=== PATIENT | male | born 1970 | race Caucasian/White ===

== ENCOUNTER 2019-04-02 09:26 | Emergency (ER) | payer MEDICAID ==
[~2019-04-02] VITALS: Ht 177.8 cm; Wt 72.6 kg
[2019-04-02 09:37] VITALS: BP 150/113
--- NOTE | 2019-04-02 09:48 | NUR ---
PATIENT AMBULATED TO BED 2.
--- NOTE | 2019-04-02 09:55 | NUR ---
pt arrived to ed c/o high blood sugar x today. bs current is 459. pt states he had sx of blurry vision, shakey hands, dizziness. pt tstates he took a friends blood sugar medication d/t not having inusrance. pt states hes been off his entire meds for 6 months. vss. steady gait. pmh:dm,htn. nka.
[2019-04-02] MEDS ORDERED: NACL 0.9% 1,000 ML IV ONE (10:00)
[2019-04-02 10:41] LABS: ANION GAP 16.4 (8-16); CARBON DIOXIDE 26.7 mmol/L (21-32); CREATININE 0.9 mg/dL (0.7-1.3); POTASSIUM 4.1 mmol/L (3.5-5.1)
[2019-04-02] MEDS ORDERED: INSULIN REGULAR, HUMAN 100 UNIT/ML VIAL IVP ONE (10:50)
[2019-04-02] MEDS ORDERED: LORazepam 0.5 MG TAB PO ONE (11:15)
--- NOTE | 2019-04-02 11:54 | NUR ---
Patient discharged with v/s stable. Written and verbal after care instructions given and explained. Patient alert, oriented and verbalized understanding of instructions. Ambulatory with steady gait. All questions addressed prior to discharge. ID band removed. Patient advised to follow up with PMD. Rx of metformin, glucometer, lancets, and strips, and lisinopril given. Patient educated on indication of medication including possible reaction and side effects. Opportunity to ask questions provided and answered.
[2019-04-02 11:55] VITALS: BP 135/76
== END 2019-04-02 11:54 | disposition home or self-care (01) ==
LOC: MED 09:26
DX: E11.65 Type 2 diabetes mellitus with hyperglycemia (principal); I10 Essential (primary) hypertension; F17.210 Nicotine dependence, cigarettes, uncomplicated; Z98.890 Other specified postprocedural states; Z76.0 Encounter for issue of repeat prescription; Z71.6 Tobacco abuse counseling
CPT/HCPCS: 36415; 80048; 82948; 96361; 96374; 99283; J1815; J7030

== ENCOUNTER 2020-09-12 10:58 | Emergency (ER) | payer SELFPAY ==
[~2020-09-12] VITALS: Ht 177.8 cm; Wt 83.9 kg
--- NOTE | 2020-09-12 11:03 | NUR ---
Patient ambulated to bed 7. RN evaluating the patient at bedside.
[2020-09-12 11:13] VITALS: BP 185/111
--- NOTE | 2020-09-12 11:18 | NUR ---
50 Y/O M BIB SELF FROM HOME, C/O RASHES THAT STARTED 3 DAYS AGO WITH BODY ACHES, CHEST PAIN, CONGESTION AND SOB. PT STATES RASH GETS WORSE AND COMES UP AT NIGHT. PT STATES HE HAS A PRODUCTIVE COUGH WITH THICK MUCOUS. AAOX4 WITH EVEN AND STEADY GAIT; PATIENT POSITIONED FOR COMFORT; HOB ELEVATED; BEDRAILS UP X2; BED DOWN. ER MD MADE AWARE OF PT STATUS. PMH: HTN, DM2 MED: NON COMPLIANT, DOES NOT HAVE MEDS AT HOME [facility]
--- NOTE | 2020-09-12 11:31 | NUR ---
Dr. Gordon is evaluating the patient at bedside.
--- NOTE | 2020-09-12 11:38 | NUR ---
XRAY AT BEDSIDE
[2020-09-12 11:43] LABS: BASOPHILS % (AUTO) 0.5 % (0.0-2.0); EOSINOPHILS % (AUTO) 0.5 % (0.0-4.0); HEMATOCRIT 40.4 % (36-52); LYMPHOCYTES # (AUTO) 1.5 K/uL (2.0-11.5); LYMPHOCYTES % (AUTO) 23.5 % (20.5-51.1); MEAN CORPUSCULAR HEMOGLOBIN 31 pg (27-31); MEAN CORPUSCULAR HGB CONC 35 g/dL (33-37); MONOCYTES # (AUTO) 0.5 K/uL (0.8-1.0); MONOCYTES % (AUTO) 7.5 % (1.7-9.3); NEUTROPHILS # (AUTO) 4.5 K/uL (1.8-7.7); PLATELET COUNT (AUTO) 271 K/uL (140-450); RED BLOOD CELL COUNT(AUTO) 4.54 MIL/uL (4.20-6.10); RED CELL DISTRIBUTION WIDTH 11.9 % (11.6-13.7); WHITE BLOOD COUNT (AUTO) 6.6 K/uL (4.8-10.8)
[2020-09-12 11:56] LABS: PROTHROMBIN TIME 10.5 secs (10.8-13.4)
[2020-09-12 11:59] LABS: ANION GAP 11.2 (8-16); CARBON DIOXIDE 28.3 mmol/L (21-32); CREATININE 0.8 mg/dL (0.6-1.3); POTASSIUM 3.5 mmol/L (3.5-5.1); TOTAL BILIRUBIN 1.3 mg/dL (0.0-1.0)
[2020-09-12] MEDS: ASPIRIN 81 MG TAB.CHEW PO ONE (13:08)
--- NOTE | 2020-09-12 13:28 | NUR ---
MARLENE AT BEDSIDE SPEAKING WITH PT.
[2020-09-12] MEDS: NACL 0.9% 1,000 ML IV ONE (13:31)
[2020-09-12] MEDS ORDERED: chlordiazePOXIDE 25 MG CAP PO SCH (13:35)
[2020-09-12] MEDS ORDERED: METF-1022 PO (13:43)
[2020-09-12] MEDS ORDERED: LIB25 PO (13:43)
[2020-09-12 14:13] VITALS: BP 166/101
--- NOTE | 2020-09-12 14:13 | NUR ---
Patient discharged with v/s stable. Written and verbal after care instructions given and explained. Patient alert, oriented and verbalized understanding of instructions. Ambulatory with steady gait. All questions addressed prior to discharge. ID band removed. Patient advised to follow up with PMD. Rx of Chlordiazepoxide, Metformin Hcl given. Patient educated on indication of medication including possible reaction and side effects. Opportunity to ask questions provided and answered.
== END 2020-09-12 14:13 | disposition home or self-care (01) ==
LOC: MED 10:58
DX: R07.9 Chest pain, unspecified (principal); R05 Cough; R63.4 Abnormal weight loss; E11.9 Type 2 diabetes mellitus without complications
CPT/HCPCS: 36415; 71045; 80053; 81002; 83880; 84484; 85025; 85610; 93005; 96360; 99285; J7030